=== PATIENT | female | born 1940 | race Caucasian/White ===

== ENCOUNTER 2024-07-01 12:19 | Emergency (ER) | payer OTHER, MEDICARE ==
[~2024-07-01] VITALS: Ht 162.6 cm; Wt 45.7 kg
[2024-07-01 13:42] VITALS: RESP 16
[2024-07-01] MEDS ORDERED: CYCL5TAB79 PO (14:43)
[2024-07-01 14:54] VITALS: BP 127/77; PULSE 82; TEMP 98.9; O2SAT 97
== END 2024-07-01 14:57 | disposition home or self-care (01) ==
LOC: ER 12:20
DX: S61.412A Laceration without foreign body of left hand, initial encounter (principal); Z79.899 Other long term (current) drug therapy; Z85.828 Personal history of other malignant neoplasm of skin; V89.2XXA Person injured in unspecified motor-vehicle accident, traffic, initial encounter; Y93.89 Activity, other specified; Y92.410 Unspecified street and highway as the place of occurrence of the external cause; Y99.8 Other external cause status
CPT/HCPCS: 99283; A6258